=== PATIENT | female | born 1960 | race American Indian/Alaskan Native ===

== ENCOUNTER 2019-01-07 16:36 | Inpatient (IN) | payer MEDICAID, OTHER ==
[2019-01-07] MEDS ORDERED: Sodium Chloride 0.9% 2.5 ML Syringe FLUSH PRN (16:48)
[2019-01-07] MEDS ORDERED: Sodium Chloride 0.9% 10 ML Syringe FLUSH PRN (16:48)
[2019-01-07] MEDS ORDERED: methylPREDNISolone Sodium Succinate 125 MG/2 ML SDV IVPUSH ONE (16:53)
[2019-01-07] MEDS ORDERED: Albuterol/Ipratropium 3.0-0.5 MG/3 ML Neb Soln NEB ONE (16:53)
--- NOTE | 2019-01-07 16:54 | EDM.PDOC ---
ED HPI GENERAL MEDICAL PROBLEM - General Chief Complaint: Chest Pain Stated Complaint: PT HAS DIFFICULTY BREATHING Time Seen by Provider: 01/07/19 16:54 Source of Information: Reports: Patient History Limitations: Reports: No Limitations - History of Present Illness INITIAL COMMENTS - FREE TEXT/NARRATIVE: HISTORY AND PHYSICAL: History of present illness: Patient is a 58-year-old female here with complaint of chest pain. She has history of COPD, on 3L O2 daily. She states she's been having pain on the right side of her chest x 2 days. She states she is always short of breath and has a cough but not new or worsening. She denies fevers, chills, nausea, vomiting, abdominal pain. Review of systems: As per history of present illness and below otherwise all systems reviewed and negative. Past medical history: As per history of present illness and as reviewed below otherwise noncontributory. Surgical history: As per history of present illness and as reviewed below otherwise noncontributory. Social history: No reported history of drug or alcohol abuse. Family history: As per history of present illness and as reviewed below otherwise noncontributory. Physical exam: General: Patient sitting comfortably in no acute distress and nontoxic appearing HEENT: Atraumatic, normocephalic, pupils reactive, negative for conjunctival pallor or scleral icterus, mucous membranes moist, throat clear, neck supple, nontender, trachea midline. No meningeal signs. Lungs: Diminished throughout all lung k[place], breath sounds equal bilaterally, chest nontender. Heart: tachycardic, S1S2, regular, negative for clicks, rubs, or overt murmur. Abdomen: Soft, nondistended, nontender. Negative for masses or hepatosplenomegaly. Negative for costovertebral tenderness. No rigidity, rebound , guarding. Pelvis: Stable nontender. Genitourinary: Deferred. Rectal: Deferred. Extremities: Atraumatic, negative for cords or calf pain. Neurovascular unremarkable. Neuro: Awake, alert, oriented. Cranial nerves II through XII unremarkable. Cerebellum unremarkable. Motor and sensory unremarkable throughout. Exam nonfocal. Notes: 1899 Dr. Murillo is evaluating patient in the ED Diagnostics: CBC, CMP, troponin, EKG, CXR Therapeutics: DuoNeb Solumedrol 125mg IV 1L Normal Saline IV Prescriptions: Impression: Pneumonia, leukocytosis Plan: Dr. Murillo accepted patient for observation Definitive disposition and diagnosis as appropriate pending reevaluation and review of above. right side of chest Pain Score (Numeric/FACES): 10 - Related Data Allergies Allergy/AdvReac Type Severity Reaction Status Date / Time Penicillins Allergy Anaphylactic Verified 01/07/19 16:54 Shock Home Meds: Home Meds Ferrous Sulfate 325 mg PO TID 01/07/19 [History] Montelukast Sodium 10 mg PO DAILY 01/07/19 [History] ED ROS GENERAL - Review of Systems Review Of Systems: ROS reveals no pertinent complaints other than HPI. ED EXAM, GENERAL - Physical Exam Exam: See Below (see dictation) Course - Vital Signs Last Recorded V/S: Last Vital Signs Temp 97.3 F 01/07/19 19:28 Pulse 110 H 01/07/19 19:28 Resp 24 H 01/07/19 19:28 BP 115/55 L 01/07/19 19:28 Pulse Ox 94 L 01/07/19 19:28 - Orders/Labs/Meds Orders: Active Orders 24 hr Category Date Time Status Patient Status [ADT] Routine ADT 01/07/19 19:05 Active Antiembolic Devices [RC] PER UNIT ROUTINE Care 01/07/19 19:08 Active Cardiac Monitoring [RC] . DIRECTED Care 01/07/19 16:48 Active EKG Documentation Completion [RC] STAT Care 01/07/19 16:48 Active Oxygen Therapy [RC] PRN Care 01/07/19 19:05 Active RT Aerosol Therapy [RC] ASDIRECTED Care 01/07/19 16:53 Active RT Aerosol Therapy [RC] ASDIRECTED Care 01/07/19 19:08 Active VTE/DVT Education [RC] PER UNIT ROUTINE Care 01/07/19 19:05 Active Vital Signs [RC] Q4H Care 01/07/19 19:05 Active Regular Diet [DIET] Diet 01/07/19 Breakfast Active BASIC METABOLIC PANEL,BMP [CHEM] AM Lab 01/08/19 05:11 Ordered CBC WITH AUTO DIFF [HEME] AM Lab 01/08/19 05:11 Ordered CULTURE BLOOD [BC] Stat Lab 01/07/19 17:52 Received CULTURE BLOOD [BC] Stat Lab 01/07/19 18:04 Received CULTURE SPUTUM + SMEAR [RM] Stat Lab 01/07/19 19:05 Ordered LACTIC ACID,WHOLE BLOOD [BG] Q6H Lab 01/07/19 23:30 Ordered LACTIC ACID,WHOLE BLOOD [BG] Q6H Lab 01/08/19 05:30 Ordered TROPONIN I [CHEM] Q6H Lab 01/07/19 23:30 Ordered TROPONIN I [CHEM] Q6H Lab 01/08/19 05:30 Ordered Albuterol/Ipratropium [DuoNeb 3.0-0.5 MG/3 ML] Med 01/07/19 19:05 Active 3 ml NEB Q4HRRT PRN Cefepime [Maxipime in D5W 1 GM/50 ML] 1 gm Med 01/07/19 19:15 Active Premix Bag 1 bag IV Q8H Heparin Sodium Med 01/07/19 19:15 Active 5,000 units SUBCUT Q8H Levofloxacin/Dextrose 5%-Water [Levaquin in D5W 750 MG/ Med 01/07/19 19:15 Active 150 ML] 750 mg Premix Bag 1 bag IV Q24H Montelukast [Singulair] Med 01/08/19 09:00 Active 10 mg PO DAILY Pharmacy to Dose - Vancomycin Med 01/07/19 19:15 Ordered 1 dose .XX ASDIRECTED Sodium Chloride 0.9% [Normal Saline] 1,000 ml Med 01/07/19 19:30 Active IV ASDIRECTED Sodium Chloride 0.9% [Saline Flush] Med 01/07/19 16:48 Active 10 ml FLUSH ASDIRECTED PRN Sodium Chloride 0.9% [Saline Flush] Med 01/07/19 16:48 Active 2.5 ml FLUSH ASDIRECTED PRN Vancomycin [Vancocin] 1 gm Med 01/07/19 19:00 Active Sodium Chloride 0.9% [Normal Saline] 250 ml IV ONETIME methylPREDNISolone Sod Succ [Solu-MEDROL] Med 01/08/19 09:00 Active 125 mg IVPUSH DAILY Blood Culture x2 Reflex Set [OM.PC] Stat Oth 01/07/19 17:38 Ordered Saline Lock Insert [OM.PC] Stat Ot 01/07/19 16:48 Ordered Sequential Compression Device [OM.PC] Per Unit Routine Oth 01/07/19 19:06 Ordered Resuscitation Status Routine Resus Stat 01/07/19 19:05 Ordered Medication Orders Albuterol/Ipratropium (Duoneb 3.0-0.5 Mg/3 Ml) 3 ml NEB Q4HRRT PRN PRN Reason: Shortness Of Breath/wheezing Heparin Sodium (Porcine) (Heparin Sodium) 5,000 units SUBCUT Q8H KARIE Cefepime HCl 1 gm/ Premix 50 mls @ 100 mls/hr IV Q8H KARIE Levofloxacin/Dextrose 750 mg/ (Premix) 150 mls @ 100 mls/hr IV Q24H KARIE Last Admin: 01/07/19 19:38 Dose: 100 mls/hr Vancomycin HCl 1 gm/ Sodium (Chloride) 250 mls @ 166 mls/hr IV ONETIME ONE Stop: 01/07/19 20:30 Sodium Chloride (Normal Saline) 1,000 mls @ 125 mls/hr IV ASDIRECTED [facility] Last Admin: 01/07/19 19:37 Dose: 125 mls/hr Methylprednisolone Sodium Succinate (Solu-Medrol) 125 mg IVPUSH DAILY [facility] Montelukast Sodium (Singulair) 10 mg PO DAILY [facility] Sodium Chloride (Saline Flush) 10 ml FLUSH ASDIRECTED PRN PRN Reason: Keep Vein Open Last Admin: 01/07/19 17:32 Dose: 10 ml Sodium Chloride (Saline Flush) 2.5 ml FLUSH ASDIRECTED PRN PRN Reason: Keep Vein Open Last Admin: 01/07/19 17:31 Dose: 2.5 ml Vancomycin HCl (Pharmacy To Dose - Vancomycin) 1 dose .XX ASDIRECTED [facility] Labs: Laboratory Tests 01/07/19 01/07/19 01/07/19 Range/Units 17:04 17:04 17:04 WBC 47.62 H (4.0-11.0) K/uL RBC 4.43 (4.30-5.90) M/uL Hgb 11.3 L (12.0-16.0) g/dL Hct 37.9 (36.0-46.0) % MCV 85.6 (80.0-98.0) fL MCH 25.5 L (27.0-32.0) pg MCHC 29.8 L (31.0-37.0) g/dL RDW Std Deviation 51.8 (28.0-62.0) fl RDW Coeff of Callie 16 H (11.0-15.0) % Plt Count 184 (150-400) K/uL MPV 10.60 (7.40-12.00) fL Add Manual Diff YES Neutrophils % (Manual) 80 (48.0-80.0) % Band Neutrophils % 10 % Lymphocytes % (Manual) 1 L (16.0-40.0) % Monocytes % (Manual) 9 (0.0-15.0) % Nucleated RBC % 0.0 /100WBC Absolute Seg Neuts 38.1 H (1.4-5.7) Band Neutrophils # 4.8 Lymphocytes # (Manual) 0.5 L (0.6-2.4) Monocytes # (Manual) 4.3 H (0.0-0.8) Nucleated RBCs # 0 K/uL Smear Path Review SENT TO PATHOLOGY Lactate (0.20-2.00) mmol/L Sodium 138 (136-145) mmol/L Potassium 4.4 (3.5-5.1) mmol/L Chloride 100 (98-107) mmol/L Carbon Dioxide 27.2 (21.0-32.0) mmol/L BUN 44 H (7.0-18.0) mg/dL Creatinine 2.3 H (0.6-1.0) mg/dL Est Cr Clr Drug Dosing 22.35 mL/min Estimated GFR (MDRD) 21.6 ml/min Glucose 146 H (74-106) mg/dL Calcium 8.7 (8.5-10.1) mg/dL Total Bilirubin 1.0 (0.2-1.0) mg/dL AST 146 H (15-37) IU/L ALT 121 H (14-63) IU/L Alkaline Phosphatase 189 H (46-116) U/L Troponin I < 0.050 (0.000-0.056) ng/mL Total Protein 7.6 (6.4-8.2) g/dL Albumin 2.6 L (3.4-5.0) g/dL Globulin 5.0 H (2.6-4.0) g/dL Albumin/Globulin Ratio 0.5 L (0.9-1.6) 01/07/19 Range/Units 17:52 WBC (4.0-11.0) K/uL RBC (4.30-5.90) M/uL Hgb (12.0-16.0) g/dL Hct (36.0-46.0) % MCV (80.0-98.0) fL MCH (27.0-32.0) pg MCHC (31.0-37.0) g/dL RDW Std Deviation (28.0-62.0) fl RDW Coeff of Callie (11.0-15.0) % Plt Count (150-400) K/uL MPV (7.40-12.00) fL Add Manual Diff Neutrophils % (Manual) (48.0-80.0) % Band Neutrophils % % Lymphocytes % (Manual) (16.0-40.0) % Monocytes % (Manual) (0.0-15.0) % Nucleated RBC % /100WBC Absolute Seg Neuts (1.4-5.7) Band Neutrophils # Lymphocytes # (Manual) (0.6-2.4) Monocytes # (Manual) (0.0-0.8) Nucleated RBCs # K/uL Smear Path Review Lactate 2.9 H (0.20-2.00) mmol/L Sodium (136-145) mmol/L Potassium (3.5-5.1) mmol/L Chloride (98-107) mmol/L Carbon Dioxide (21.0-32.0) mmol/L BUN (7.0-18.0) mg/dL Creatinine (0.6-1.0) mg/dL Est Cr Clr Drug Dosing mL/min Estimated GFR (MDRD) ml/min Glucose (74-106) mg/dL Calcium (8.5-10.1) mg/dL Total Bilirubin (0.2-1.0) mg/dL AST (15-37) IU/L ALT (14-63) IU/L Alkaline Phosphatase (46-116) U/L Troponin I (0.000-0.056) ng/mL Total Protein (6.4-8.2) g/dL Albumin (3.4-5.0) g/dL Globulin (2.6-4.0) g/dL Albumin/Globulin Ratio (0.9-1.6) Meds: Medications Generic Name Dose Route Start Last Admin Trade Name Freq PRN Reason Stop Dose Admin Albuterol/Ipratropium 3 ml 01/07/19 19:05 Duoneb 3.0-0.5 Mg/3 Ml NEB Q4HRRT PRN Shortness Of Breath/wheezing Heparin Sodium (Porcine) 5,000 units 01/07/19 19:15 Heparin Sodium SUBCUT Q8H KARIE Cefepime HCl 1 gm/ Premix 50 mls @ 100 mls/hr 01/07/19 19:15 IV Q8H KARIE Levofloxacin/Dextrose 750 mg/ 150 mls @ 100 mls/hr 01/07/19 19:15 01/07/19 19 :38 Premix IV 100 mls/hr Q24H KARIE Administration Vancomycin HCl 1 gm/ Sodium 250 mls @ 166 mls/hr 01/07/19 19:00 Chloride IV 01/07/19 20:30 ONETIME ONE Sodium Chloride 1,000 mls @ 125 mls/hr 01/07/19 19:30 01/07/19 19:37 Normal Saline IV 125 mls/hr ASDIRECTED KARIE Administration Methylprednisolone Sodium Succinate 125 mg 01/08/19 09:00 Solu-Medrol IVPUSH DAILY KARIE Montelukast Sodium 10 mg 01/08/19 09:00 Singulair PO DAILY KARIE Sodium Chloride 10 ml 01/07/19 16:48 01/07/19 17:32 Saline Flush FLUSH 10 ml ASDIRECTED PRN Administration Keep Vein Open Sodium Chloride 2.5 ml 01/07/19 16:48 01/07/19 17:31 Saline Flush FLUSH 2.5 ml ASDIRECTED PRN Administration Keep Vein Open Vancomycin HCl 1 dose 01/07/19 19:15 Pharmacy To Dose - Vancomycin .XX ASDIRECTED KARIE Discontinued Medications Generic Name Dose Route Start Last Admin Trade Name Zachariahq PRN Reason Stop Dose Admin Albuterol/Ipratropium 3 ml 01/07/19 16:53 01/07/19 17:08 Duoneb 3.0-0.5 Mg/3 Ml NEB 01/07/19 16:54 3 ml ONETIME ONE Administration Sodium Chloride 1,000 mls @ 999 mls/hr 01/07/19 17:26 01/07/19 17:31 Normal Saline IV 01/07/19 18:26 999 mls/hr STAT ONE Administration Methylprednisolone Sodium Succinate 125 mg 01/07/19 16:53 01/07/19 17:30 Solu-Medrol IVPUSH 01/07/19 16:54 125 mg ONETIME ONE Administration Departure - Departure Time of Disposition: 19:39 Disposition: Refer to Observation Condition: Good Clinical Impression: Pneumonia - Discharge Information Referrals: PCP,None [Primary Care Provider] - Forms: ED Department Discharge - My Orders Last 24 Hours: My Active Orders 01/07/19 16:48 Cardiac Monitoring [RC] . DIRECTED EKG Documentation Completion [RC] STAT Sodium Chloride 0.9% [Saline Flush] 10 ml FLUSH ASDIRECTED PRN Sodium Chloride 0.9% [Saline Flush] 2.5 ml FLUSH ASDIRECTED PRN Saline Lock Insert [OM.PC] Stat 01/07/19 16:53 RT Aerosol Therapy [RC] ASDIRECTED 01/07/19 17:38 Blood Culture x2 Reflex Set [OM.PC] Stat 01/07/19 17:52 CULTURE BLOOD [BC] Stat 01/07/19 18:04 CULTURE BLOOD [BC] Stat - Assessment/Plan Last 24 Hours: My Active Orders 01/07/19 16:48 Cardiac Monitoring [RC] . DIRECTED EKG Documentation Completion [RC] STAT Sodium Chloride 0.9% [Saline Flush] 10 ml FLUSH ASDIRECTED PRN Sodium Chloride 0.9% [Saline Flush] 2.5 ml FLUSH ASDIRECTED PRN Saline Lock Insert [OM.PC] Stat 01/07/19 16:53 RT Aerosol Therapy [RC] ASDIRECTED 01/07/19 17:38 Blood Culture x2 Reflex Set [OM.PC] Stat 01/07/19 17:52 CULTURE BLOOD [BC] Stat 01/07/19 18:04 CULTURE BLOOD [BC] Stat
[2019-01-07] MEDS ORDERED: Sodium Chloride 0.9% 1,000 ML IV ONE (17:26)
[2019-01-07 17:43] LABS: CHLORIDE,CL 100 mmol/L (98-107); SODIUM,NA 138 mmol/L (136-145)
--- NOTE | 2019-01-07 17:45 | CR ---
INDICATION: Chest pain. Shortness of breath. FINDINGS: A portable AP upright view of the chest was obtained. The cardiac silhouette and pulmonary vasculature are within normal limits. There are bibasilar airspace opacities right greater than left. There is scarring in the left upper lung. IMPRESSION: Bibasilar pneumonia right greater than left. Dictated by Geovanny Tsang MD @ 01/07/2019 5:42:52 PM Dictated by: Geovanny Tsang MD @ 01/07/2019 17:42:58 (Electronically Signed)
--- NOTE | 2019-01-07 19:30 | PCM.HP ---
H&P History of Present Illness - General Date of Service: 01/07/19 Admit Problem/Dx: Admission Diagnosis/Problem Admission Diagnosis/Problem Pneumonia - History of Present Illness Initial Comments - Free Text/Narative: 58 yo female with pmh of oxygen dependent COPD who presents with three day history of shortness of breath, productive cough, chest congestion and chest pain. She reports the symptoms worsened today while visiting her sister in [place] as she lives in [place]. In the ED she was noted to have a WBC of 47,000. CXR reported bilateral pneumonia. Patient reports she was admitted in [place] three weeks ago for a pneumonia. right side of chest Pain Score (Numeric/FACES): 10 - Related Data Allergies/Adverse Reactions: Allergies Allergy/AdvReac Type Severity Reaction Status Date / Time Penicillins Allergy Anaphylactic Verified 01/07/19 16:54 Shock Home Medications: Home Meds Albuterol Sulfate [Proair Hfa] 8.5 gm IH ASDIRECTED PRN 01/07/19 [History] Albuterol/Ipratropium [DuoNeb 3.0-0.5 MG/3 ML] 3 ml .XX ASDIRECTED PRN 01/07/19 [History] Ferrous Sulfate 325 mg PO TID 01/07/19 [History] Montelukast Sodium 10 mg PO DAILY 01/07/19 [History] Past Medical History HEENT History: Reports: Impaired Vision Respiratory History: Reports: Asthma, COPD [employer] History: Reports: , Spontaneous Other Musculoskeletal History: jaw fracture Social & Family History - Family History Family Medical History: Noncontributory - Tobacco Use Smoking Status *Q: Former Smoker Used Tobacco, but Quit: Yes Month/Year Tobacco Last Used: 11/2018 - Recreational Drug Use Recreational Drug Use: No H&P Review of Systems - Review of Systems: Review Of Systems: ROS reveals no pertinent complaints other than HPI. Exam - Exam Exam: See Below - Vital Signs Vital Signs: Last Vital Signs Temp 36.6 C 01/07/19 16:57 Pulse 104 H 01/07/19 18:52 Resp 24 H 01/07/19 18:52 BP 115/58 L 01/07/19 18:52 Pulse Ox 94 L 01/07/19 18:52 Weight: 54.431 kg - Exam General: Alert, Oriented HEENT: Mucosa Moist & [place] Neck: Supple Lungs: Normal Respiratory Effort, Rhonchi Cardiovascular: Regular Rate, Regular Rhythm GI/Abdominal Exam: Normal Bowel Sounds, Soft, Non-Tender Extremities: Non-Tender, No Pedal Edema Skin: Warm, Dry, Intact - Patient Data Lab Results Last 24 hrs: Laboratory Results - last 24 hr 01/07/19 01/07/19 01/07/19 Range/Units 17:04 17:04 17:04 WBC 47.62 H (4.0-11.0) K/uL RBC 4.43 (4.30-5.90) M/uL Hgb 11.3 L (12.0-16.0) g/dL Hct 37.9 (36.0-46.0) % MCV 85.6 (80.0-98.0) fL MCH 25.5 L (27.0-32.0) pg MCHC 29.8 L (31.0-37.0) g/dL RDW Std Deviation 51.8 (28.0-62.0) fl RDW Coeff of Callie 16 H (11.0-15.0) % Plt Count 184 (150-400) K/uL MPV 10.60 (7.40-12.00) fL Add Manual Diff YES Neutrophils % (Manual) 80 (48.0-80.0) % Band Neutrophils % 10 % Lymphocytes % (Manual) 1 L (16.0-40.0) % Monocytes % (Manual) 9 (0.0-15.0) % Nucleated RBC % 0.0 /100WBC Absolute Seg Neuts 38.1 H (1.4-5.7) Band Neutrophils # 4.8 Lymphocytes # (Manual) 0.5 L (0.6-2.4) Monocytes # (Manual) 4.3 H (0.0-0.8) Nucleated RBCs # 0 K/uL Smear Path Review SENT TO PATHOLOGY Lactate (0.20-2.00) mmol/L Sodium 138 (136-145) mmol/L Potassium 4.4 (3.5-5.1) mmol/L Chloride 100 (98-107) mmol/L Carbon Dioxide 27.2 (21.0-32.0) mmol/L BUN 44 H (7.0-18.0) mg/dL Creatinine 2.3 H (0.6-1.0) mg/dL Est Cr Clr Drug Dosing 22.35 mL/min Estimated GFR (MDRD) 21.6 ml/min Glucose 146 H (74-106) mg/dL Calcium 8.7 (8.5-10.1) mg/dL Total Bilirubin 1.0 (0.2-1.0) mg/dL AST 146 H (15-37) IU/L ALT 121 H (14-63) IU/L Alkaline Phosphatase 189 H (46-116) U/L Troponin I < 0.050 (0.000-0.056) ng/mL Total Protein 7.6 (6.4-8.2) g/dL Albumin 2.6 L (3.4-5.0) g/dL Globulin 5.0 H (2.6-4.0) g/dL Albumin/Globulin Ratio 0.5 L (0.9-1.6) 01/07/19 Range/Units 17:52 WBC (4.0-11.0) K/uL RBC (4.30-5.90) M/uL Hgb (12.0-16.0) g/dL Hct (36.0-46.0) % MCV (80.0-98.0) fL MCH (27.0-32.0) pg MCHC (31.0-37.0) g/dL RDW Std Deviation (28.0-62.0) fl RDW Coeff of Callie (11.0-15.0) % Plt Count (150-400) K/uL MPV (7.40-12.00) fL Add Manual Diff Neutrophils % (Manual) (48.0-80.0) % Band Neutrophils % % Lymphocytes % (Manual) (16.0-40.0) % Monocytes % (Manual) (0.0-15.0) % Nucleated RBC % /100WBC Absolute Seg Neuts (1.4-5.7) Band Neutrophils # Lymphocytes # (Manual) (0.6-2.4) Monocytes # (Manual) (0.0-0.8) Nucleated RBCs # K/uL Smear Path Review Lactate 2.9 H (0.20-2.00) mmol/L Sodium (136-145) mmol/L Potassium (3.5-5.1) mmol/L Chloride (98-107) mmol/L Carbon Dioxide (21.0-32.0) mmol/L BUN (7.0-18.0) mg/dL Creatinine (0.6-1.0) mg/dL Est Cr Clr Drug Dosing mL/min Estimated GFR (MDRD) ml/min Glucose (74-106) mg/dL Calcium (8.5-10.1) mg/dL Total Bilirubin (0.2-1.0) mg/dL AST (15-37) IU/L ALT (14-63) IU/L Alkaline Phosphatase (46-116) U/L Troponin I (0.000-0.056) ng/mL Total Protein (6.4-8.2) g/dL Albumin (3.4-5.0) g/dL Globulin (2.6-4.0) g/dL Albumin/Globulin Ratio (0.9-1.6) Result Diagrams: 01/08/19 05:58 01/08/19 05:58 Problem List Initiated/Reviewed/Updated: Yes Orders Last 24hrs: Active Orders 24 hr Category Date Time Status Patient Status [ADT] Routine ADT 01/07/19 19:05 Ordered Antiembolic Devices [RC] PER UNIT ROUTINE Care 01/07/19 19:08 Ordered Cardiac Monitoring [RC] . DIRECTED Care 01/07/19 16:48 Active EKG Documentation Completion [RC] STAT Care 01/07/19 16:48 Active Oxygen Therapy [RC] PRN Care 01/07/19 19:05 Ordered RT Aerosol Therapy [RC] ASDIRECTED Care 01/07/19 16:53 Active RT Aerosol Therapy [RC] ASDIRECTED Care 01/07/19 19:08 Ordered VTE/DVT Education [RC] PER UNIT ROUTINE Care 01/07/19 19:05 Ordered Vital Signs [RC] Q4H Care 01/07/19 19:05 Ordered Regular Diet [DIET] Diet 01/07/19 Breakfast Ordered BASIC METABOLIC PANEL,BMP [CHEM] AM Lab 01/08/19 05:11 Ordered CBC WITH AUTO DIFF [HEME] AM Lab 01/08/19 05:11 Ordered CULTURE BLOOD [BC] Stat Lab 01/07/19 17:52 Received CULTURE BLOOD [BC] Stat Lab 01/07/19 18:04 Received CULTURE SPUTUM + SMEAR [RM] Stat Lab 01/07/19 19:05 Ordered LACTIC ACID,WHOLE BLOOD [BG] Q6H Lab 01/07/19 23:30 Ordered LACTIC ACID,WHOLE BLOOD [BG] Q6H Lab 01/08/19 05:30 Ordered TROPONIN I [CHEM] Q6H Lab 01/07/19 23:30 Ordered TROPONIN I [CHEM] Q6H Lab 01/08/19 05:30 Ordered Albuterol/Ipratropium [DuoNeb 3.0-0.5 MG/3 ML] Med 01/07/19 19:05 Ordered 3 ml NEB Q4HRRT PRN Cefepime [Maxipime in D5W 1 GM/50 ML] 1 gm Med 01/07/19 19:15 Ordered Premix Bag 1 bag IV Q8H Heparin Sodium Med 01/07/19 19:15 Ordered 5,000 units SUBCUT Q8H Levofloxacin/Dextrose 5%-Water [Levaquin in D5W 750 MG/ Med 01/07/19 19:15 Ordered 150 ML] 750 mg Premix Bag 1 bag IV Q24H Montelukast [Singulair] Med 01/08/19 09:00 Ordered 10 mg PO DAILY Pharmacy to Dose - Vancomycin Med 01/07/19 19:15 Ordered 1 dose .XX ASDIRECTED Sodium Chloride 0.9% @ 125 MLS/HR (1,000ml) Med 01/07/19 19:30 Ordered Sodium Chloride 0.9% [Normal Saline] 1,000 ml IV ASDIRECTED Sodium Chloride 0.9% [Saline Flush] Med 01/07/19 16:48 Active 10 ml FLUSH ASDIRECTED PRN Sodium Chloride 0.9% [Saline Flush] Med 01/07/19 16:48 Active 2.5 ml FLUSH ASDIRECTED PRN Vancomycin [Vancocin] 1 gm Med 01/07/19 19:00 Active Sodium Chloride 0.9% [Normal Saline] 250 ml IV ONETIME methylPREDNISolone Sod Succ [Solu-MEDROL] Med 01/08/19 09:00 Ordered 125 mg IVPUSH DAILY Blood Culture x2 Reflex Set [OM.PC] Stat Oth 01/07/19 17:38 Ordered Saline Lock Insert [OM.PC] Stat Oth 01/07/19 16:48 Ordered Sequential Compression Device [OM.PC] Per Unit Routine Oth 01/07/19 19:06 Ordered Resuscitation Status Routine Resus Stat 01/07/19 19:05 Ordered Medication Orders Albuterol/Ipratropium (Duoneb 3.0-0.5 Mg/3 Ml) 3 ml NEB Q4HRRT PRN PRN Reason: Shortness Of Breath/wheezing Heparin Sodium (Porcine) (Heparin Sodium) 5,000 units SUBCUT Q8H [facility] Cefepime HCl 1 gm/ Premix 50 mls @ 100 mls/hr IV Q8H KARIE Levofloxacin/Dextrose 750 mg/ (Premix) 150 mls @ 100 mls/hr IV Q24H KARIE Vancomycin HCl 1 gm/ Sodium (Chloride) 250 mls @ 166 mls/hr IV ONETIME ONE Stop: 01/07/19 20:30 Sodium Chloride (Normal Saline) 1,000 mls @ 125 mls/hr IV ASDIRECTED [facility] Methylprednisolone Sodium Succinate (Solu-Medrol) 125 mg IVPUSH DAILY [facility] Montelukast Sodium (Singulair) 10 mg PO DAILY [facility] Sodium Chloride (Saline Flush) 10 ml FLUSH ASDIRECTED PRN PRN Reason: Keep Vein Open Last Admin: 01/07/19 17:32 Dose: 10 ml Sodium Chloride (Saline Flush) 2.5 ml FLUSH ASDIRECTED PRN PRN Reason: Keep Vein Open Last Admin: 01/07/19 17:31 Dose: 2.5 ml Vancomycin HCl (Pharmacy To Dose - Vancomycin) 1 dose .XX ASDIRECTED [facility] Assessment/Plan Comment:: 58 yo female admitted for pneumonia: HCAP: will treat for possible gram negative matthew infection with broad spectrum antibiotics, cultures pending COPD exacerbation: solumedrol, duonebs
[2019-01-07] MEDS: Sodium Chloride 0.9% 1,000 ML IV SCH (19:37)
[2019-01-07] MEDS: Heparin Sodium 5,000 Units/ML Vial SUBCUT SCH (19:38)
[2019-01-07] MEDS: Levofloxacin/Dextrose 5%-Water 750 MG in Premix Bag 1 BAG IV SCH (19:38)
[2019-01-07] MEDS: Cefepime 1 GM in Premix Bag 1 BAG IV SCH (20:57)
[2019-01-07] MEDS: Acetaminophen 325 MG Tab PO PRN (21:41)
[2019-01-07] MEDS: Albuterol/Ipratropium 3.0-0.5 MG/3 ML Neb Soln NEB PRN (23:46)
[2019-01-08] MEDS: Cefepime 1 GM in Premix Bag 1 BAG IV SCH ×3 (03:10→18:18)
[2019-01-08] MEDS: Sodium Chloride 0.9% 1,000 ML IV SCH ×2 (03:10→11:27)
[2019-01-08] MEDS: Heparin Sodium 5,000 Units/ML Vial SUBCUT SCH ×3 (03:15→19:01)
[2019-01-08] MEDS: Acetaminophen 325 MG Tab PO PRN ×2 (07:03→16:00)
[2019-01-08] MEDS: Montelukast 10 MG Tab PO SCH (08:33)
[2019-01-08] MEDS: Albuterol/Ipratropium 3.0-0.5 MG/3 ML Neb Soln NEB PRN ×3 (08:48→21:34)
[2019-01-08] MEDS ORDERED: methylPREDNISolone Sodium Succinate 125 MG/2 ML SDV IVPUSH SCH (09:00)
--- NOTE | 2019-01-08 10:03 | PCM.PN ---
- General Info Date of Service: 01/08/19 - Review of Systems Systems Review Comment:: patient feeling better, breathing has improved - Patient Data Vitals - Most Recent: Last Vital Signs Temp 36.3 C 01/08/19 07:37 Pulse 114 H 01/08/19 07:37 Resp 19 01/08/19 07:37 BP 135/96 H 01/08/19 07:37 Pulse Ox 95 01/08/19 07:37 Weight - Most Recent: 45.529 kg I&O - Last 24 Hours: Intake & Output 01/07/19 01/08/19 01/08/19 22:59 06:59 14:59 Intake Total 3342 Output Total 400 Balance 2942 Lab Results Last 24 Hours: Laboratory Results - last 24 hr 01/07/19 01/07/19 01/07/19 Range/Units 17:04 17:04 17:04 WBC 47.62 H (4.0-11.0) K/uL RBC 4.43 (4.30-5.90) M/uL Hgb 11.3 L (12.0-16.0) g/dL Hct 37.9 (36.0-46.0) % MCV 85.6 (80.0-98.0) fL MCH 25.5 L (27.0-32.0) pg MCHC 29.8 L (31.0-37.0) g/dL RDW Std Deviation 51.8 (28.0-62.0) fl RDW Coeff of Callie 16 H (11.0-15.0) % Plt Count 184 (150-400) K/uL MPV 10.60 (7.40-12.00) fL Add Manual Diff YES Neutrophils % (Manual) 80 (48.0-80.0) % Band Neutrophils % 10 % Lymphocytes % (Manual) 1 L (16.0-40.0) % Monocytes % (Manual) 9 (0.0-15.0) % Nucleated RBC % 0.0 /100WBC Absolute Seg Neuts 38.1 H (1.4-5.7) Band Neutrophils # 4.8 Lymphocytes # (Manual) 0.5 L (0.6-2.4) Monocytes # (Manual) 4.3 H (0.0-0.8) Nucleated RBCs # 0 K/uL Smear Path Review SENT TO PATHOLOGY Lactate (0.20-2.00) mmol/L Sodium 138 (136-145) mmol/L Potassium 4.4 (3.5-5.1) mmol/L Chloride 100 (98-107) mmol/L Carbon Dioxide 27.2 (21.0-32.0) mmol/L BUN 44 H (7.0-18.0) mg/dL Creatinine 2.3 H (0.6-1.0) mg/dL Est Cr Clr Drug Dosing 22.35 mL/min Estimated GFR (MDRD) 21.6 ml/min Glucose 146 H (74-106) mg/dL Calcium 8.7 (8.5-10.1) mg/dL Total Bilirubin 1.0 (0.2-1.0) mg/dL AST 146 H (15-37) IU/L ALT 121 H (14-63) IU/L Alkaline Phosphatase 189 H (46-116) U/L Troponin I < 0.050 (0.000-0.056) ng/mL Total Protein 7.6 (6.4-8.2) g/dL Albumin 2.6 L (3.4-5.0) g/dL Globulin 5.0 H (2.6-4.0) g/dL Albumin/Globulin Ratio 0.5 L (0.9-1.6) 01/07/19 01/07/19 01/07/19 Range/Units 17:52 23:27 23:27 WBC (4.0-11.0) K/uL RBC (4.30-5.90) M/uL Hgb (12.0-16.0) g/dL Hct (36.0-46.0) % MCV (80.0-98.0) fL MCH (27.0-32.0) pg MCHC (31.0-37.0) g/dL RDW Std Deviation (28.0-62.0) fl RDW Coeff of Callie (11.0-15.0) % Plt Count (150-400) K/uL MPV (7.40-12.00) fL Add Manual Diff Neutrophils % (Manual) (48.0-80.0) % Band Neutrophils % % Lymphocytes % (Manual) (16.0-40.0) % Monocytes % (Manual) (0.0-15.0) % Nucleated RBC % /100WBC Absolute Seg Neuts (1.4-5.7) Band Neutrophils # Lymphocytes # (Manual) (0.6-2.4) Monocytes # (Manual) (0.0-0.8) Nucleated RBCs # K/uL Smear Path Review Lactate 2.9 H 2.8 H (0.20-2.00) mmol/L Sodium (136-145) mmol/L Potassium (3.5-5.1) mmol/L Chloride (98-107) mmol/L Carbon Dioxide (21.0-32.0) mmol/L BUN (7.0-18.0) mg/dL Creatinine (0.6-1.0) mg/dL Est Cr Clr Drug Dosing mL/min Estimated GFR (MDRD) ml/min Glucose (74-106) mg/dL Calcium (8.5-10.1) mg/dL Total Bilirubin (0.2-1.0) mg/dL AST (15-37) IU/L ALT (14-63) IU/L Alkaline Phosphatase (46-116) U/L Troponin I <0.050 (0.000-0.056) ng/mL Total Protein (6.4-8.2) g/dL Albumin (3.4-5.0) g/dL Globulin (2.6-4.0) g/dL Albumin/Globulin Ratio (0.9-1.6) 01/08/19 01/08/19 01/08/19 Range/Units 05:58 05:58 05:58 WBC 39.78 H (4.0-11.0) K/uL RBC 3.93 L (4.30-5.90) M/uL Hgb 9.9 L (12.0-16.0) g/dL Hct 33.4 L (36.0-46.0) % MCV 85.0 (80.0-98.0) fL MCH 25.2 L (27.0-32.0) pg MCHC 29.6 L (31.0-37.0) g/dL RDW Std Deviation 52.2 (28.0-62.0) fl RDW Coeff of Callie 17 H (11.0-15.0) % Plt Count 162 (150-400) K/uL MPV 10.30 (7.40-12.00) fL Add Manual Diff YES Neutrophils % (Manual) 96 H (48.0-80.0) % Band Neutrophils % % Lymphocytes % (Manual) 3 L (16.0-40.0) % Monocytes % (Manual) 1 (0.0-15.0) % Nucleated RBC % 0.0 /100WBC Absolute Seg Neuts 38.2 H (1.4-5.7) Band Neutrophils # Lymphocytes # (Manual) 1.2 (0.6-2.4) Monocytes # (Manual) 0.4 (0.0-0.8) Nucleated RBCs # 0 K/uL Smear Path Review Lactate 1.8 (0.20-2.00) mmol/L Sodium 139 (136-145) mmol/L Potassium 4.6 (3.5-5.1) mmol/L Chloride 107 (98-107) mmol/L Carbon Dioxide 27.6 (21.0-32.0) mmol/L BUN 38 H (7.0-18.0) mg/dL Creatinine 1.2 H (0.6-1.0) mg/dL Est Cr Clr Drug Dosing 35.83 mL/min Estimated GFR (MDRD) 45.8 ml/min Glucose 187 H (74-106) mg/dL Calcium 8.1 L (8.5-10.1) mg/dL Total Bilirubin (0.2-1.0) mg/dL AST (15-37) IU/L ALT (14-63) IU/L Alkaline Phosphatase (46-116) U/L Troponin I (0.000-0.056) ng/mL Total Protein (6.4-8.2) g/dL Albumin (3.4-5.0) g/dL Globulin (2.6-4.0) g/dL Albumin/Globulin Ratio (0.9-1.6) 01/08/19 Range/Units 05:58 WBC (4.0-11.0) K/uL RBC (4.30-5.90) M/uL Hgb (12.0-16.0) g/dL Hct (36.0-46.0) % MCV (80.0-98.0) fL MCH (27.0-32.0) pg MCHC (31.0-37.0) g/dL RDW Std Deviation (28.0-62.0) fl RDW Coeff of Callie (11.0-15.0) % Plt Count (150-400) K/uL MPV (7.40-12.00) fL Add Manual Diff Neutrophils % (Manual) (48.0-80.0) % Band Neutrophils % % Lymphocytes % (Manual) (16.0-40.0) % Monocytes % (Manual) (0.0-15.0) % Nucleated RBC % /100WBC Absolute Seg Neuts (1.4-5.7) Band Neutrophils # Lymphocytes # (Manual) (0.6-2.4) Monocytes # (Manual) (0.0-0.8) Nucleated RBCs # K/uL Smear Path Review Lactate (0.20-2.00) mmol/L Sodium (136-145) mmol/L Potassium (3.5-5.1) mmol/L Chloride (98-107) mmol/L Carbon Dioxide (21.0-32.0) mmol/L BUN (7.0-18.0) mg/dL Creatinine (0.6-1.0) mg/dL Est Cr Clr Drug Dosing mL/min Estimated GFR (MDRD) ml/min Glucose (74-106) mg/dL Calcium (8.5-10.1) mg/dL Total Bilirubin (0.2-1.0) mg/dL AST (15-37) IU/L ALT (14-63) IU/L Alkaline Phosphatase (46-116) U/L Troponin I < 0.050 (0.000-0.056) ng/mL Total Protein (6.4-8.2) g/dL Albumin (3.4-5.0) g/dL Globulin (2.6-4.0) g/dL Albumin/Globulin Ratio (0.9-1.6) Darrick Results Last 24 Hours: Microbiology 01/07/19 17:52 Aerobic Blood Culture - Preliminary Blood - Venous 01/07/19 18:04 Aerobic Blood Culture - Preliminary Blood - Venous - Lab Draw Med Orders - Current: Current Medications Acetaminophen (Tylenol) 650 mg PO Q6H PRN PRN Reason: Pain Last Admin: 01/08/19 07:03 Dose: 650 mg Albuterol/Ipratropium (Duoneb 3.0-0.5 Mg/3 Ml) 3 ml NEB Q4HRRT PRN PRN Reason: Shortness Of Breath/wheezing Last Admin: 01/08/19 08:48 Dose: 3 ml Heparin Sodium (Porcine) (Heparin Sodium) 5,000 units SUBCUT Q8H [facility] Last Admin: 01/08/19 03:15 Dose: 5,000 units Cefepime HCl 1 gm/ Premix 50 mls @ 100 mls/hr IV Q8H [facility] Last Admin: 01/08/19 03:10 Dose: 100 mls/hr Levofloxacin/Dextrose 750 mg/ (Premix) 150 mls @ 100 mls/hr IV Q24H [facility] Last Admin: 01/07/19 19:38 Dose: 100 mls/hr Sodium Chloride (Normal Saline) 1,000 mls @ 125 mls/hr IV ASDIRECTED [facility] Last Admin: 01/08/19 03:10 Dose: 125 mls/hr Vancomycin HCl 0.75 gm/ Sodium (Chloride) 250 mls @ 166.667 mls/hr IV Q24H [facility] Methylprednisolone Sodium Succinate (Solu-Medrol) 125 mg IVPUSH DAILY [facility] Last Admin: 01/08/19 08:33 Dose: 125 mg Montelukast Sodium (Singulair) 10 mg PO DAILY [facility] Last Admin: 01/08/19 08:33 Dose: 10 mg Sodium Chloride (Saline Flush) 10 ml FLUSH ASDIRECTED PRN PRN Reason: Keep Vein Open Last Admin: 01/07/19 17:32 Dose: 10 ml Sodium Chloride (Saline Flush) 2.5 ml FLUSH ASDIRECTED PRN PRN Reason: Keep Vein Open Last Admin: 01/07/19 17:31 Dose: 2.5 ml Vancomycin HCl (Pharmacy To Dose - Vancomycin) 1 dose .XX ASDIRECTED [facility] Discontinued Medications Albuterol/Ipratropium (Duoneb 3.0-0.5 Mg/3 Ml) 3 ml NEB ONETIME ONE Stop: 01/07/19 16:54 Last Admin: 01/07/19 17:08 Dose: 3 ml Sodium Chloride (Normal Saline) 1,000 mls @ 999 mls/hr IV STAT ONE Stop: 01/07/19 18:26 Last Admin: 01/07/19 17:31 Dose: 999 mls/hr Vancomycin HCl 1 gm/ Sodium (Chloride) 250 mls @ 166 mls/hr IV ONETIME ONE Stop: 01/07/19 20:30 Last Admin: 01/07/19 21:30 Dose: 166 mls/hr Vancomycin HCl 1 gm/ Sodium (Chloride) 250 mls @ 166 mls/hr IV ONETIME ONE Stop: 01/07/19 23:30 Last Admin: 01/07/19 22:00 Dose: 166 mls/hr Methylprednisolone Sodium Succinate (Solu-Medrol) 125 mg IVPUSH ONETIME ONE Stop: 01/07/19 16:54 Last Admin: 01/07/19 17:30 Dose: 125 mg - Exam General: Alert, Oriented Lungs: Normal Respiratory Effort, Rhonchi Cardiovascular: Regular Rate, Regular Rhythm GI/Abdominal Exam: Soft, Non-Tender Extremities: Non-Tender, No Pedal Edema Skin: Warm, Dry, Intact - Problem List Review Problem List Initiated/Reviewed/Updated: Yes - My Orders Last 24 Hours: My Active Orders 01/07/19 19:05 Patient Status [ADT] Routine Oxygen Therapy [RC] PRN VTE/DVT Education [RC] PER UNIT ROUTINE Vital Signs [RC] Q4H CULTURE SPUTUM + SMEAR [RM] Stat Albuterol/Ipratropium [DuoNeb 3.0-0.5 MG/3 ML] 3 ml NEB Q4HRRT PRN 01/07/19 19:06 Sequential Compression Device [OM.PC] Per Unit Routine 01/07/19 19:08 Antiembolic Devices [RC] PER UNIT ROUTINE RT Aerosol Therapy [RC] ASDIRECTED 01/07/19 19:15 Cefepime [Maxipime in D5W 1 GM/50 ML] 1 gm Premix Bag 1 bag IV Q8H Heparin Sodium 5,000 units SUBCUT Q8H Levofloxacin/Dextrose 5%-Water [Levaquin in D5W 750 MG/150 ML] 750 mg Premix Bag 1 bag IV Q24H Pharmacy to Dose - Vancomycin 1 dose .XX ASDIRECTED 01/07/19 19:30 Sodium Chloride 0.9% [Normal Saline] 1,000 ml IV ASDIRECTED 01/07/19 21:33 Acetaminophen [Tylenol] 650 mg PO Q6H PRN Code Status [Resuscitation Status] Routine 01/08/19 07:34 Telemetry Monitoring [Cardiac Monitoring] [RC] . DIRECTED 07/07/19 08:51 Discontinue Telemetry Monitoring [Cardiac Monitoring Discontinue] [RC] Click to Edit 01/08/19 09:00 Montelukast [Singulair] 10 mg PO DAILY methylPREDNISolone Sod Succ [Solu-MEDROL] 125 mg IVPUSH DAILY 01/08/19 22:00 Vancomycin 0.75 gm Sodium Chloride 0.9% [Normal Saline] 250 ml IV Q24H 01/09/19 05:11 BASIC METABOLIC PANEL,BMP [CHEM] AM CBC WITH AUTO DIFF [HEME] AM 01/10/19 05:11 BASIC METABOLIC PANEL,BMP [CHEM] AM CBC WITH AUTO DIFF [HEME] AM 01/11/19 05:11 BASIC METABOLIC PANEL,BMP [CHEM] AM CBC WITH AUTO DIFF [HEME] AM - Plan Plan:: 58 yo female admitted for pneumonia and sepsis found to be bacteremic: sepsis: resolving, lactic acid normalized HCAP: Will continue vancomycin, cefepime, and levaquin, 4/4 blood cultures growing gram positive cocci COPD exacerbation: birdie cisneros Acute kidney injury: creatinine has improved to 1.2
[2019-01-08] MEDS: Levofloxacin/Dextrose 5%-Water 750 MG in Premix Bag 1 BAG IV SCH (18:55)
[2019-01-09] MEDS: Sodium Chloride 0.9% 1,000 ML IV SCH ×3 (00:49→18:03)
[2019-01-09] MEDS: Cefepime 1 GM in Premix Bag 1 BAG IV SCH ×3 (03:11→18:15)
[2019-01-09] MEDS: Heparin Sodium 5,000 Units/ML Vial SUBCUT SCH ×3 (03:16→18:15)
[2019-01-09 06:11] LABS: CHLORIDE,CL 110 mmol/L (98-107); SODIUM,NA 143 mmol/L (136-145)
--- NOTE | 2019-01-09 08:00 | PCM.PN ---
- General Info Date of Service: 01/09/19 - Review of Systems Systems Review Comment:: feeling better. has productive cough, shortness of breath improving, daughter told nurses patient uses meth. Patient denies IV drug use - Patient Data Vitals - Most Recent: Last Vital Signs Temp 36.4 C 01/09/19 04:00 Pulse 105 H 01/09/19 04:00 Resp 19 01/09/19 04:00 BP 123/89 01/09/19 04:00 Pulse Ox 100 01/09/19 04:00 Weight - Most Recent: 54.431 kg I&O - Last 24 Hours: Intake & Output 01/08/19 01/09/19 01/09/19 22:59 06:59 14:59 Intake Total 1060 2153 Output Total 0 1000 Balance 1060 1153 Lab Results Last 24 Hours: Laboratory Results - last 24 hr 01/09/19 01/09/19 Range/Units 05:35 05:35 WBC 33.33 H (4.0-11.0) K/uL RBC 3.80 L (4.30-5.90) M/uL Hgb 9.6 L (12.0-16.0) g/dL Hct 32.1 L (36.0-46.0) % MCV 84.5 (80.0-98.0) fL MCH 25.3 L (27.0-32.0) pg MCHC 29.9 L (31.0-37.0) g/dL RDW Std Deviation 52.2 (28.0-62.0) fl RDW Coeff of Callie 17 H (11.0-15.0) % Plt Count 172 (150-400) K/uL MPV 10.30 (7.40-12.00) fL Add Manual Diff YES Neutrophils % (Manual) 95 H (48.0-80.0) % Band Neutrophils % 2 % Lymphocytes % (Manual) 2 L (16.0-40.0) % Monocytes % (Manual) 1 (0.0-15.0) % Nucleated RBC % 0.0 /100WBC Absolute Seg Neuts 31.7 H (1.4-5.7) Band Neutrophils # 0.7 Lymphocytes # (Manual) 0.7 (0.6-2.4) Monocytes # (Manual) 0.3 (0.0-0.8) Nucleated RBCs # 0 K/uL Sodium 143 (136-145) mmol/L Potassium 5.0 (3.5-5.1) mmol/L Chloride 110 H (98-107) mmol/L Carbon Dioxide 26.7 (21.0-32.0) mmol/L BUN 27 H (7.0-18.0) mg/dL Creatinine 0.7 (0.6-1.0) mg/dL Est Cr Clr Drug Dosing 73.44 mL/min Estimated GFR (MDRD) > 60.0 ml/min Glucose 127 H (74-106) mg/dL Calcium 8.6 (8.5-10.1) mg/dL Darrick Results Last 24 Hours: Microbiology 01/08/19 10:10 Gram Stain - Preliminary Sputum - Expectorated 01/07/19 18:04 Aerobic Blood Culture - Preliminary Blood - Venous - Lab Draw Anaerobic Blood Culture - Preliminary 01/07/19 17:52 Aerobic Blood Culture - Preliminary Blood - Venous Anaerobic Blood Culture - Preliminary Med Orders - Current: Current Medications Acetaminophen (Tylenol) 650 mg PO Q6H PRN PRN Reason: Pain Last Admin: 01/08/19 16:00 Dose: 650 mg Albuterol/Ipratropium (Duoneb 3.0-0.5 Mg/3 Ml) 3 ml NEB Q4HRRT PRN PRN Reason: Shortness Of Breath/wheezing Last Admin: 01/08/19 21:34 Dose: 3 ml Heparin Sodium (Porcine) (Heparin Sodium) 5,000 units SUBCUT Q8H [facility] Last Admin: 01/09/19 03:16 Dose: 5,000 units Cefepime HCl 1 gm/ Premix 50 mls @ 100 mls/hr IV Q8H [facility] Last Admin: 01/09/19 03:11 Dose: 100 mls/hr Levofloxacin/Dextrose 750 mg/ (Premix) 150 mls @ 100 mls/hr IV Q24H [facility] Last Admin: 01/08/19 18:55 Dose: 100 mls/hr Sodium Chloride (Normal Saline) 1,000 mls @ 125 mls/hr IV ASDIRECTED [facility] Last Admin: 01/09/19 00:49 Dose: 125 mls/hr Vancomycin HCl 0.75 gm/ Sodium (Chloride) 250 mls @ 166.667 mls/hr IV Q24H [facility] Last Admin: 01/08/19 21:42 Dose: 166.667 mls/hr Montelukast Sodium (Singulair) 10 mg PO DAILY [facility] Last Admin: 01/08/19 08:33 Dose: 10 mg Prednisone (Prednisone) 40 mg PO WITHBREAKFAST [facility] Sodium Chloride (Saline Flush) 10 ml FLUSH ASDIRECTED PRN PRN Reason: Keep Vein Open Last Admin: 01/07/19 17:32 Dose: 10 ml Sodium Chloride (Saline Flush) 2.5 ml FLUSH ASDIRECTED PRN PRN Reason: Keep Vein Open Last Admin: 01/07/19 17:31 Dose: 2.5 ml Vancomycin HCl (Pharmacy To Dose - Vancomycin) 1 dose .XX ASDIRECTED [facility] Discontinued Medications Albuterol/Ipratropium (Duoneb 3.0-0.5 Mg/3 Ml) 3 ml NEB ONETIME ONE Stop: 01/07/19 16:54 Last Admin: 01/07/19 17:08 Dose: 3 ml Sodium Chloride (Normal Saline) 1,000 mls @ 999 mls/hr IV STAT ONE Stop: 01/07/19 18:26 Last Admin: 01/07/19 17:31 Dose: 999 mls/hr Vancomycin HCl 1 gm/ Sodium (Chloride) 250 mls @ 166 mls/hr IV ONETIME ONE Stop: 01/07/19 20:30 Last Admin: 01/07/19 21:30 Dose: 166 mls/hr Vancomycin HCl 1 gm/ Sodium (Chloride) 250 mls @ 166 mls/hr IV ONETIME ONE Stop: 01/07/19 23:30 Last Admin: 01/07/19 22:00 Dose: 166 mls/hr Methylprednisolone Sodium Succinate (Solu-Medrol) 125 mg IVPUSH ONETIME ONE Stop: 01/07/19 16:54 Last Admin: 01/07/19 17:30 Dose: 125 mg Methylprednisolone Sodium Succinate (Solu-Medrol) 125 mg IVPUSH DAILY [facility] Last Admin: 01/08/19 08:33 Dose: 125 mg - Exam General: Alert, Oriented Lungs: Normal Respiratory Effort, Rhonchi GI/Abdominal Exam: Soft, No Distention Extremities: Non-Tender, No Pedal Edema Skin: Warm, Dry, Intact Neurological: No New Focal Deficit - Problem List Review Problem List Initiated/Reviewed/Updated: Yes - My Orders Last 24 Hours: My Active Orders 01/08/19 07:34 Telemetry Monitoring [Cardiac Monitoring] [RC] . DIRECTED 01/08/19 08:51 Discontinue Telemetry Monitoring [Cardiac Monitoring Discontinue] [RC] Click to Edit 01/08/19 09:00 Montelukast [Singulair] 10 mg PO DAILY 01/08/19 10:10 CULTURE SPUTUM + SMEAR [RM] Stat 01/08/19 22:00 Vancomycin 0.75 gm Sodium Chloride 0.9% [Normal Saline] 250 ml IV Q24H 01/09/19 08:00 predniSONE 40 mg PO WITHBREAKFAST 01/10/19 05:11 BASIC METABOLIC PANEL,BMP [CHEM] AM CBC WITH AUTO DIFF [HEME] AM 01/11/19 05:11 BASIC METABOLIC PANEL,BMP [CHEM] AM CBC WITH AUTO DIFF [HEME] AM - Plan Plan:: 58 yo female admitted for pneumonia: HCAP: blood cultures growing gram positive cocci, will continue vancomycin, cefepime, and levaquin. COPD exacerbation: [email or web address]
[2019-01-09] MEDS: Montelukast 10 MG Tab PO SCH (08:51)
[2019-01-09] MEDS: predniSONE 20 MG Tab PO SCH (08:51)
[2019-01-09] MEDS: Albuterol/Ipratropium 3.0-0.5 MG/3 ML Neb Soln NEB PRN ×2 (09:07→15:09)
[2019-01-09] MEDS: Levofloxacin/Dextrose 5%-Water 750 MG in Premix Bag 1 BAG IV SCH (18:49)
[2019-01-10] MEDS: Cefepime 1 GM in Premix Bag 1 BAG IV SCH ×3 (03:30→15:47)
[2019-01-10] MEDS: Heparin Sodium 5,000 Units/ML Vial SUBCUT SCH ×4 (03:36→22:11)
[2019-01-10] MEDS: Albuterol/Ipratropium 3.0-0.5 MG/3 ML Neb Soln NEB PRN ×4 (04:22→22:11)
[2019-01-10 06:28] LABS: CHLORIDE,CL 109 mmol/L (98-107); SODIUM,NA 142 mmol/L (136-145)
[2019-01-10] MEDS: Sodium Chloride 0.9% 1,000 ML IV SCH ×2 (06:42→21:41)
[2019-01-10] MEDS: predniSONE 20 MG Tab PO SCH (08:10)
[2019-01-10] MEDS: Montelukast 10 MG Tab PO SCH (08:11)
--- NOTE | 2019-01-10 11:38 | PCM.PN ---
- General Info Date of Service: 01/10/19 - Review of Systems Systems Review Comment:: feeling better, eager to get home - Patient Data Vitals - Most Recent: Last Vital Signs Temp 36.1 C 01/10/19 08:00 Pulse 102 H 01/10/19 08:00 Resp 18 01/10/19 08:00 BP 102/50 L 01/10/19 08:00 Pulse Ox 95 01/10/19 08:00 Weight - Most Recent: 54.431 kg I&O - Last 24 Hours: Intake & Output 01/09/19 01/10/19 01/10/19 22:59 06:59 14:59 Intake Total 2642 2447 Output Total 2650 3300 Balance -8 -853 Lab Results Last 24 Hours: Laboratory Results - last 24 hr 01/07/19 01/10/19 01/10/19 Range/Units 17:52 05:11 05:55 WBC 18.94 H (4.0-11.0) K/uL RBC 3.58 L (4.30-5.90) M/uL Hgb 8.8 L (12.0-16.0) g/dL Hct 29.8 L (36.0-46.0) % MCV 83.2 (80.0-98.0) fL MCH 24.6 L (27.0-32.0) pg MCHC 29.5 L (31.0-37.0) g/dL RDW Std Deviation 52.2 (28.0-62.0) fl RDW Coeff of Callie 17 H (11.0-15.0) % Plt Count 129 L (150-400) K/uL MPV 10.00 (7.40-12.00) fL Add Manual Diff YES Neutrophils % (Manual) 87 H (48.0-80.0) % Band Neutrophils % 1 % Lymphocytes % (Manual) 9 L (16.0-40.0) % Monocytes % (Manual) 2 (0.0-15.0) % Metamyelocytes % 1 % Nucleated RBC % 0.0 /100WBC Absolute Seg Neuts 16.5 H (1.4-5.7) Band Neutrophils # 0.2 Lymphocytes # (Manual) 1.7 (0.6-2.4) Monocytes # (Manual) 0.4 (0.0-0.8) Absolute Metamyelocyte 0.2 Nucleated RBCs # 0 K/uL Lactate 2.9 H (0.20-2.00) mmol/L Sodium 142 (136-145) mmol/L Potassium 4.1 (3.5-5.1) mmol/L Chloride 109 H (98-107) mmol/L Carbon Dioxide 28.4 (21.0-32.0) mmol/L BUN 19 H (7.0-18.0) mg/dL Creatinine 0.6 (0.6-1.0) mg/dL Est Cr Clr Drug Dosing 85.68 mL/min Estimated GFR (MDRD) > 60.0 ml/min Glucose 96 (74-106) mg/dL Calcium 7.7 L (8.5-10.1) mg/dL Darrick Results Last 24 Hours: Microbiology 01/08/19 10:10 Gram Stain - Preliminary Sputum - Expectorated Sputum Culture - Preliminary 01/07/19 17:52 Aerobic Blood Culture - Preliminary Blood - Venous Anaerobic Blood Culture - Preliminary 01/07/19 18:04 Aerobic Blood Culture - Preliminary Blood - Venous - Lab Draw Anaerobic Blood Culture - Preliminary Med Orders - Current: Current Medications Acetaminophen (Tylenol) 650 mg PO Q6H PRN PRN Reason: Pain Last Admin: 01/08/19 16:00 Dose: 650 mg Albuterol/Ipratropium (Duoneb 3.0-0.5 Mg/3 Ml) 3 ml NEB Q4HRRT PRN PRN Reason: Shortness Of Breath/wheezing Last Admin: 01/10/19 09:16 Dose: 3 ml Heparin Sodium (Porcine) (Heparin Sodium) 5,000 units SUBCUT Q8H [facility] Last Admin: 01/10/19 03:36 Dose: 5,000 units Cefepime HCl 1 gm/ Premix 50 mls @ 100 mls/hr IV Q8H [facility] Last Admin: 01/10/19 03:30 Dose: 100 mls/hr Levofloxacin/Dextrose 750 mg/ (Premix) 150 mls @ 100 mls/hr IV Q24H [facility] Last Admin: 01/09/19 18:49 Dose: 100 mls/hr Sodium Chloride (Normal Saline) 1,000 mls @ 125 mls/hr IV ASDIRECTED [facility] Last Admin: 01/10/19 06:42 Dose: 125 mls/hr Vancomycin HCl 0.75 gm/ Sodium (Chloride) 250 mls @ 166.667 mls/hr IV Q24H [facility] Last Admin: 01/09/19 22:34 Dose: 166.667 mls/hr Montelukast Sodium (Singulair) 10 mg PO DAILY [facility] Last Admin: 01/10/19 08:11 Dose: 10 mg Prednisone (Prednisone) 40 mg PO WITHBREAKFAST [facility] Last Admin: 01/10/19 08:10 Dose: 40 mg Sodium Chloride (Saline Flush) 10 ml FLUSH ASDIRECTED PRN PRN Reason: Keep Vein Open Last Admin: 01/07/19 17:32 Dose: 10 ml Sodium Chloride (Saline Flush) 2.5 ml FLUSH ASDIRECTED PRN PRN Reason: Keep Vein Open Last Admin: 01/07/19 17:31 Dose: 2.5 ml Vancomycin HCl (Pharmacy To Dose - Vancomycin) 1 dose .XX ASDIRECTED [facility] Discontinued Medications Albuterol/Ipratropium (Duoneb 3.0-0.5 Mg/3 Ml) 3 ml NEB ONETIME ONE Stop: 01/07/19 16:54 Last Admin: 01/07/19 17:08 Dose: 3 ml Sodium Chloride (Normal Saline) 1,000 mls @ 999 mls/hr IV STAT ONE Stop: 01/07/19 18:26 Last Admin: 01/07/19 17:31 Dose: 999 mls/hr Vancomycin HCl 1 gm/ Sodium (Chloride) 250 mls @ 166 mls/hr IV ONETIME ONE Stop: 01/07/19 20:30 Last Admin: 01/07/19 21:30 Dose: 166 mls/hr Vancomycin HCl 1 gm/ Sodium (Chloride) 250 mls @ 166 mls/hr IV ONETIME ONE Stop: 01/07/19 23:30 Last Admin: 01/07/19 22:00 Dose: 166 mls/hr Methylprednisolone Sodium Succinate (Solu-Medrol) 125 mg IVPUSH ONETIME ONE Stop: 01/07/19 16:54 Last Admin: 01/07/19 17:30 Dose: 125 mg Methylprednisolone Sodium Succinate (Solu-Medrol) 125 mg IVPUSH DAILY [facility] Last Admin: 01/08/19 08:33 Dose: 125 mg - Exam General: Alert, Oriented Lungs: Normal Respiratory Effort, Rhonchi GI/Abdominal Exam: Soft, Non-Tender Extremities: Non-Tender, No Pedal Edema Skin: Warm, Dry, Intact - Problem List Review Problem List Initiated/Reviewed/Updated: Yes - My Orders Last 24 Hours: My Active Orders 01/11/19 05:11 BASIC METABOLIC PANEL,BMP [CHEM] AM CBC WITH AUTO DIFF [HEME] AM - Plan Plan:: 58 yo female admitted for pneumonia: HCAP: blood cultures growing gram positive cocci, will tailor antibiotics when cultures speciate. COPD exacerbation: prednisone, cyrilonebs
[2019-01-10] MEDS: Levofloxacin/Dextrose 5%-Water 750 MG in Premix Bag 1 BAG IV SCH (18:20)
[2019-01-10] MEDS: Propranolol 20 MG Tab PO SCH (20:03)
[2019-01-10] MEDS ORDERED: Vancomycin 1.5 GM in Sodium Chloride 0.9% 500 ML IV ONE (22:30)
[2019-01-11] MEDS: Cefepime 1 GM in Premix Bag 1 BAG IV SCH ×3 (00:38→16:36)
[2019-01-11 05:43] LABS: CHLORIDE,CL 108 mmol/L (98-107); SODIUM,NA 142 mmol/L (136-145)
[2019-01-11] MEDS: Heparin Sodium 5,000 Units/ML Vial SUBCUT SCH ×3 (06:17→21:04)
[2019-01-11] MEDS: Albuterol/Ipratropium 3.0-0.5 MG/3 ML Neb Soln NEB PRN ×3 (08:36→20:33)
[2019-01-11] MEDS: Sodium Chloride 0.9% 1,000 ML IV SCH ×2 (08:38→19:02)
[2019-01-11] MEDS: predniSONE 20 MG Tab PO SCH (08:44)
[2019-01-11] MEDS: Montelukast 10 MG Tab PO SCH (08:45)
[2019-01-11] MEDS: Propranolol 20 MG Tab PO SCH ×2 (08:45→20:33)
--- NOTE | 2019-01-11 13:20 | PCM.PN ---
- General Info Date of Service: 01/11/19 - Review of Systems Systems Review Comment:: patient had nausea after eating some chocolate milk shake brought in by family. - Patient Data Vitals - Most Recent: Last Vital Signs Temp 36.6 C 01/11/19 11:45 Pulse 83 01/11/19 11:45 Resp 18 01/11/19 11:45 BP 138/71 01/11/19 11:45 Pulse Ox 97 01/11/19 11:45 Weight - Most Recent: 54.431 kg I&O - Last 24 Hours: Intake & Output 01/10/19 01/11/19 01/11/19 22:59 06:59 14:59 Intake Total 1440 2916 250 Output Total 1850 2000 Balance -410 916 250 Lab Results Last 24 Hours: Laboratory Results - last 24 hr 01/10/19 01/11/19 01/11/19 Range/Units 21:30 05:10 05:10 WBC 13.66 H (4.0-11.0) K/uL RBC 3.50 L (4.30-5.90) M/uL Hgb 8.7 L (12.0-16.0) g/dL Hct 29.5 L (36.0-46.0) % MCV 84.3 (80.0-98.0) fL MCH 24.9 L (27.0-32.0) pg MCHC 29.5 L (31.0-37.0) g/dL RDW Std Deviation 52.3 (28.0-62.0) fl RDW Coeff of Callie 17 H (11.0-15.0) % Plt Count 94 L (150-400) K/uL MPV 10.40 (7.40-12.00) fL Add Manual Diff YES Neutrophils % (Manual) 74 (48.0-80.0) % Band Neutrophils % 7 % Lymphocytes % (Manual) 18 (16.0-40.0) % Metamyelocytes % 1 % Nucleated RBC % 0.0 /100WBC Absolute Seg Neuts 10.1 H (1.4-5.7) Band Neutrophils # 1.0 Lymphocytes # (Manual) 2.5 H (0.6-2.4) Absolute Metamyelocyte 0.1 Nucleated RBCs # 0 K/uL Sodium 142 (136-145) mmol/L Potassium 4.1 (3.5-5.1) mmol/L Chloride 108 H (98-107) mmol/L Carbon Dioxide 32.3 H (21.0-32.0) mmol/L BUN 17 (7.0-18.0) mg/dL Creatinine 0.6 (0.6-1.0) mg/dL Est Cr Clr Drug Dosing 85.68 mL/min Estimated GFR (MDRD) > 60.0 ml/min Glucose 95 (74-106) mg/dL Calcium 7.6 L (8.5-10.1) mg/dL Vancomycin Trough 3.5 L (5.0-10.0) ug/mL [facility] Results Last 24 Hours: Microbiology 01/08/19 10:10 Gram Stain - Preliminary Sputum - Expectorated Sputum Culture - Preliminary 01/07/19 17:52 Aerobic Blood Culture - Preliminary Blood - Venous Anaerobic Blood Culture - Preliminary 01/07/19 18:04 Aerobic Blood Culture - Preliminary Blood - Venous - Lab Draw Anaerobic Blood Culture - Preliminary Med Orders - Current: Current Medications Acetaminophen (Tylenol) 650 mg PO Q6H PRN PRN Reason: Pain Last Admin: 01/08/19 16:00 Dose: 650 mg Albuterol/Ipratropium (Duoneb 3.0-0.5 Mg/3 Ml) 3 ml NEB Q4HRRT PRN PRN Reason: Shortness Of Breath/wheezing Last Admin: 01/11/19 08:36 Dose: 3 ml Heparin Sodium (Porcine) (Heparin Sodium) 5,000 units SUBCUT Q8HR [facility] Last Admin: 01/11/19 06:17 Dose: Not Given Levofloxacin/Dextrose 750 mg/ (Premix) 150 mls @ 100 mls/hr IV Q24H [facility] Last Admin: 01/10/19 18:20 Dose: 100 mls/hr Sodium Chloride (Normal Saline) 1,000 mls @ 125 mls/hr IV ASDIRECTED [facility] Last Admin: 01/11/19 08:38 Dose: 125 mls/hr Cefepime HCl 1 gm/ Premix 50 mls @ 100 mls/hr IV Q8H [facility] Last Admin: 01/11/19 08:41 Dose: 100 mls/hr Vancomycin HCl 1 gm/ Sodium (Chloride) 250 mls @ 166 mls/hr IV Q12H [facility] Last Admin: 01/11/19 11:23 Dose: 166 mls/hr Montelukast Sodium (Singulair) 10 mg PO DAILY [facility] Last Admin: 01/11/19 08:45 Dose: 10 mg Prednisone (Prednisone) 40 mg PO WITHBREAKFAST [facility] Last Admin: 01/11/19 08:44 Dose: 40 mg Propranolol HCl (Inderal) 20 mg PO BID [facility] Last Admin: 01/11/19 08:45 Dose: 20 mg Sodium Chloride (Saline Flush) 10 ml FLUSH ASDIRECTED PRN PRN Reason: Keep Vein Open Last Admin: 01/07/19 17:32 Dose: 10 ml Sodium Chloride (Saline Flush) 2.5 ml FLUSH ASDIRECTED PRN PRN Reason: Keep Vein Open Last Admin: 01/07/19 17:31 Dose: 2.5 ml Vancomycin HCl (Pharmacy To Dose - Vancomycin) 1 dose .XX ASDIRECTED [facility] Discontinued Medications Albuterol/Ipratropium (Duoneb 3.0-0.5 Mg/3 Ml) 3 ml NEB ONETIME ONE Stop: 01/07/19 16:54 Last Admin: 01/07/19 17:08 Dose: 3 ml Heparin Sodium (Porcine) (Heparin Sodium) 5,000 units SUBCUT Q8H [facility] Last Admin: 01/10/19 15:00 Dose: Not Given Sodium Chloride (Normal Saline) 1,000 mls @ 999 mls/hr IV STAT ONE Stop: 01/07/19 18:26 Last Admin: 01/07/19 17:31 Dose: 999 mls/hr Cefepime HCl 1 gm/ Premix 50 mls @ 100 mls/hr IV Q8H [facility] Last Admin: 01/10/19 15:33 Dose: Not Given Vancomycin HCl 1 gm/ Sodium (Chloride) 250 mls @ 166 mls/hr IV ONETIME ONE Stop: 01/07/19 20:30 Last Admin: 01/07/19 21:30 Dose: 166 mls/hr Vancomycin HCl 1 gm/ Sodium (Chloride) 250 mls @ 166 mls/hr IV ONETIME ONE Stop: 01/07/19 23:30 Last Admin: 01/07/19 22:00 Dose: 166 mls/hr Vancomycin HCl 0.75 gm/ Sodium (Chloride) 250 mls @ 166.667 mls/hr IV Q24H [facility] Last Admin: 01/10/19 23:20 Dose: Not Given Vancomycin HCl 1.5 gm/ Sodium (Chloride) 500 mls @ 333.333 mls/hr IV ONETIME ONE Stop: 01/10/19 23:59 Last Admin: 01/10/19 23:06 Dose: 333.333 mls/hr Methylprednisolone Sodium Succinate (Solu-Medrol) 125 mg IVPUSH ONETIME ONE Stop: 01/07/19 16:54 Last Admin: 01/07/19 17:30 Dose: 125 mg Methylprednisolone Sodium Succinate (Solu-Medrol) 125 mg IVPUSH DAILY [facility] Last Admin: 01/08/19 08:33 Dose: 125 mg - Exam General: Alert, Oriented Neck: Supple Lungs: Normal Respiratory Effort, Wheezing Extremities: Non-Tender, No Pedal Edema Skin: Warm, Dry, Intact - Problem List Review Problem List Initiated/Reviewed/Updated: Yes - My Orders Last 24 Hours: My Active Orders 01/10/19 14:00 Heparin Sodium 5,000 units SUBCUT Q8HR 01/10/19 14:28 Consult to Physician [CONS] Urgent 01/10/19 14:32 Notify Provider Consults [RC] ASDIRECTED 01/10/19 16:00 Cefepime [Maxipime in D5W 1 GM/50 ML] 1 gm Premix Bag 1 bag IV Q8H 01/10/19 21:00 Propranolol [Inderal] 20 mg PO BID 01/11/19 11:00 Vancomycin 1 gm Sodium Chloride 0.9% [Normal Saline] 250 ml IV Q12H 01/12/19 05:11 BASIC METABOLIC PANEL,BMP [CHEM] AM CBC WITH AUTO DIFF [HEME] AM - Plan Plan:: 58 yo female admitted for pneumonia: HCAP: blood cultures growing gram positive cocci, will tailor antibiotics when cultures speciate. COPD exacerbation: prednisone, duonebs Discharge: pending culture results.
[2019-01-11] MEDS: Levofloxacin/Dextrose 5%-Water 750 MG in Premix Bag 1 BAG IV SCH (18:55)
[2019-01-12] MEDS: Cefepime 1 GM in Premix Bag 1 BAG IV SCH ×2 (01:09→08:58)
[2019-01-12] MEDS: Albuterol/Ipratropium 3.0-0.5 MG/3 ML Neb Soln NEB PRN ×2 (04:24→09:24)
[2019-01-12] MEDS: Heparin Sodium 5,000 Units/ML Vial SUBCUT SCH (05:04)
[2019-01-12 05:29] LABS: CHLORIDE,CL 106 mmol/L (98-107); SODIUM,NA 142 mmol/L (136-145)
[2019-01-12] MEDS: Sodium Chloride 0.9% 1,000 ML IV SCH (06:00)
[2019-01-12] MEDS: predniSONE 20 MG Tab PO SCH (08:39)
[2019-01-12] MEDS: Propranolol 20 MG Tab PO SCH (08:40)
[2019-01-12] MEDS: Montelukast 10 MG Tab PO SCH (08:40)
--- NOTE | 2019-01-12 10:42 | PCM.DCSUM1 ---
Discharge Summary - Discharge Data Discharge Date: 01/12/19 Discharge Disposition: Against Medical Advice 07 Condition: Good - Patient Summary/Data Consults: Consultations 01/10/19 14:28 Consult to Physician [CONS] Urgent Hospital Course: Hospital diagnosis: COPD exacerbation bacteremia Pneumonia from Strep Pneumoniae 58 yo female with pmh of oxygen dependent COPD and meth abuse who was admitted for pneumonia. She presente with three day history of shortness of breath, productive cough, chest congestion and chest pain. In the ED she was noted to have a WBC of 47,000. CXR reported bilateral pneumonia. Due to history of COPD and recent antibiotic use she was initially treated for possible gram negative respiratory infection with broad spectrum antibiotics. She was treated with Solumedrol and duonebs for COPD exacerbation. / blood cultures grew out gram positive cocci. Her white count improved to 11,000. She was treated for five days with IV antibiotics while waiting for speciation and PERCY of cultures. Patient today is demanding discharge and has sign out AMA. Preliminary culture results from micro lab are that the blood cultures are growing strep pneumoniae but final PERCY is pending. Patient was discharged on oral levaquin for nine more days and prednisone taper. - Discharge Plan Prescriptions/Med Rec: Fluticasone/Salmeterol [Advair 250-50] 1 puff INH BID #1 diskus Levofloxacin [Levaquin] 750 mg PO DAILY #9 tablet predniSONE See Taper PO WITHBREAKFAST #15 tablet Home Medications: Home Meds Albuterol Sulfate [Proair Hfa] 8.5 gm IH ASDIRECTED PRN 01/07/19 [History] Albuterol/Ipratropium [DuoNeb 3.0-0.5 MG/3 ML] 3 ml .XX ASDIRECTED PRN 01/07/19 [History] Ferrous Sulfate 325 mg PO TID 01/07/19 [History] Montelukast Sodium 10 mg PO DAILY 01/07/19 [History] Fluticasone/Salmeterol [Advair 250-50] 1 puff INH BID #1 diskus 01/12/19 [Rx] Levofloxacin [Levaquin] 750 mg PO DAILY #9 tablet 01/12/19 [Rx] predniSONE See Taper PO WITHBREAKFAST #15 tablet 01/12/19 [Rx] Patient Handouts: Acute Kidney Injury, Adult, Chronic Obstructive Pulmonary Disease, [id number], Healthcare-Associated Pneumonia - Patient Data Vitals - Most Recent: Last Vital Signs Temp 35.9 C 01/12/19 07:59 Pulse 87 01/12/19 07:59 Resp 12 01/12/19 07:59 BP 150/83 H 01/12/19 07:59 Pulse Ox 98 01/12/19 07:59 Weight - Most Recent: 54.431 kg I&O - Last 24 hours: Intake & Output 01/11/19 01/12/19 01/12/19 22:59 06:59 14:59 Intake Total 410 2871 240 Output Total 4000 Balance 410 -1129 240 Lab Results - Last 24 hrs: Laboratory Results - last 24 hr 01/12/19 01/12/19 Range/Units 04:30 04:30 WBC 11.35 H (4.0-11.0) K/uL RBC 3.40 L (4.30-5.90) M/uL Hgb 8.4 L (12.0-16.0) g/dL Hct 28.5 L (36.0-46.0) % MCV 83.8 (80.0-98.0) fL MCH 24.7 L (27.0-32.0) pg MCHC 29.5 L (31.0-37.0) g/dL RDW Std Deviation 52.4 (28.0-62.0) fl RDW Coeff of Callie 17 H (11.0-15.0) % Plt Count 81 L (150-400) K/uL MPV 10.50 (7.40-12.00) fL Add Manual Diff YES Neutrophils % (Manual) 68 (48.0-80.0) % Band Neutrophils % 3 % Lymphocytes % (Manual) 22 (16.0-40.0) % Monocytes % (Manual) 4 (0.0-15.0) % Eosinophils % (Manual) 1 (0.0-7.0) % Metamyelocytes % 2 % Nucleated RBC % 0.2 /100WBC Absolute Seg Neuts 7.7 H (1.4-5.7) Band Neutrophils # 0.3 Lymphocytes # (Manual) 2.5 H (0.6-2.4) Monocytes # (Manual) 0.5 (0.0-0.8) Eosinophils # (Manual) 0.1 (0.0-0.7) Absolute Metamyelocyte 0.2 Nucleated RBCs # 0 K/uL Sodium 142 (136-145) mmol/L Potassium 4.1 (3.5-5.1) mmol/L Chloride 106 (98-107) mmol/L Carbon Dioxide 34.5 H (21.0-32.0) mmol/L BUN 23 H (7.0-18.0) mg/dL Creatinine 0.6 (0.6-1.0) mg/dL Est Cr Clr Drug Dosing 85.68 mL/min Estimated GFR (MDRD) > 60.0 ml/min Glucose 89 (74-106) mg/dL Calcium 7.6 L (8.5-10.1) mg/dL [facility]CY Results - Last 24 hrs: Microbiology 01/08/19 10:10 Gram Stain - Preliminary Sputum - Expectorated Sputum Culture - Preliminary Med Orders - Current: Current Medications Acetaminophen (Tylenol) 650 mg PO Q6H PRN PRN Reason: Pain Last Admin: 01/08/19 16:00 Dose: 650 mg Albuterol/Ipratropium (Duoneb 3.0-0.5 Mg/3 Ml) 3 ml NEB Q4HRRT PRN PRN Reason: Shortness Of Breath/wheezing Last Admin: 01/12/19 09:24 Dose: 3 ml Heparin Sodium (Porcine) (Heparin Sodium) 5,000 units SUBCUT Q8HR [facility] Last Admin: 01/12/19 05:04 Dose: Not Given Levofloxacin/Dextrose 750 mg/ (Premix) 150 mls @ 100 mls/hr IV Q24H [facility] Last Admin: 01/11/19 18:55 Dose: 100 mls/hr Sodium Chloride (Normal Saline) 1,000 mls @ 125 mls/hr IV ASDIRECTED [facility] Last Admin: 01/12/19 06:00 Dose: 125 mls/hr Cefepime HCl 1 gm/ Premix 50 mls @ 100 mls/hr IV Q8H [facility] Last Admin: 01/12/19 08:58 Dose: 100 mls/hr Vancomycin HCl 1 gm/ Sodium (Chloride) 250 mls @ 166 mls/hr IV Q12H [facility] Last Admin: 01/11/19 22:16 Dose: 166 mls/hr Montelukast Sodium (Singulair) 10 mg PO DAILY [facility] Last Admin: 01/12/19 08:40 Dose: 10 mg Prednisone (Prednisone) 40 mg PO WITHBREAKFAST [facility] Last Admin: 01/12/19 08:39 Dose: 40 mg Propranolol HCl (Inderal) 20 mg PO BID [facility] Last Admin: 01/12/19 08:40 Dose: 20 mg Sodium Chloride (Saline Flush) 10 ml FLUSH ASDIRECTED PRN PRN Reason: Keep Vein Open Last Admin: 01/07/19 17:32 Dose: 10 ml Sodium Chloride (Saline Flush) 2.5 ml FLUSH ASDIRECTED PRN PRN Reason: Keep Vein Open Last Admin: 01/07/19 17:31 Dose: 2.5 ml Vancomycin HCl (Pharmacy To Dose - Vancomycin) 1 dose .XX ASDIRECTED [facility] Discontinued Medications Albuterol/Ipratropium (Duoneb 3.0-0.5 Mg/3 Ml) 3 ml NEB ONETIME ONE Stop: 01/07/19 16:54 Last Admin: 01/07/19 17:08 Dose: 3 ml Heparin Sodium (Porcine) (Heparin Sodium) 5,000 units SUBCUT Q8H [facility] Last Admin: 01/10/19 15:00 Dose: Not Given Sodium Chloride (Normal Saline) 1,000 mls @ 999 mls/hr IV STAT ONE Stop: 01/07/19 18:26 Last Admin: 01/07/19 17:31 Dose: 999 mls/hr Cefepime HCl 1 gm/ Premix 50 mls @ 100 mls/hr IV Q8H [facility] Last Admin: 01/10/19 15:33 Dose: Not Given Vancomycin HCl 1 gm/ Sodium (Chloride) 250 mls @ 166 mls/hr IV ONETIME ONE Stop: 01/07/19 20:30 Last Admin: 01/07/19 21:30 Dose: 166 mls/hr Vancomycin HCl 1 gm/ Sodium (Chloride) 250 mls @ 166 mls/hr IV ONETIME ONE Stop: 01/07/19 23:30 Last Admin: 01/07/19 22:00 Dose: 166 mls/hr Vancomycin HCl 0.75 gm/ Sodium (Chloride) 250 mls @ 166.667 mls/hr IV Q24H [facility] Last Admin: 01/10/19 23:20 Dose: Not Given Vancomycin HCl 1.5 gm/ Sodium (Chloride) 500 mls @ 333.333 mls/hr IV ONETIME ONE Stop: 01/10/19 23:59 Last Admin: 01/10/19 23:06 Dose: 333.333 mls/hr Methylprednisolone Sodium Succinate (Solu-Medrol) 125 mg IVPUSH ONETIME ONE Stop: 01/07/19 16:54 Last Admin: 01/07/19 17:30 Dose: 125 mg Methylprednisolone Sodium Succinate (Solu-Medrol) 125 mg IVPUSH DAILY [facility] Last Admin: 01/08/19 08:33 Dose: 125 mg
== END 2019-01-12 12:20 | disposition left against medical advice (07) | DRG 871 ==
LOC: MW.ED 16:36 → MW.MS 19:43
PROVIDERS: ADMIT Internal Medicine; ATTEND Internal Medicine
DX: A41.9 Sepsis, unspecified organism (principal); J13 Pneumonia due to Streptococcus pneumoniae; J44.0 Chronic obstructive pulmonary disease with (acute) lower respiratory infection; J44.1 Chronic obstructive pulmonary disease with (acute) exacerbation; N17.9 Acute kidney failure, unspecified; Z79.899 Other long term (current) drug therapy; Z99.81 Dependence on supplemental oxygen; Z88.0 Allergy status to penicillin; Z87.891 Personal history of nicotine dependence
CPT/HCPCS: 36415; 71045; 71045-26; 80048; 80053; 80202; 80305-QW; 83605; 84484; 85025; 87040; 87070; 87077; 87186; 87205; 88104; 93005; 94640; 96361; 96365; 96375; 99284; 99285-25; A4217; A9270-GY; J0692; J1644; J1956; J2930; J3370; J7040; J7050; J7620-GY